=== PATIENT | female | born 2000 | race Caucasian/White ===

== ENCOUNTER 2018-02-02 06:54 | Inpatient (IN) ==
[~2018-02-02 06:54] MED LIST: *HR* Nalbuphine 10 MG/ML AMPUL IVP PRN; Famotidine 20 MG/2 ML VIAL IVP PRN; Metoclopramide 10 MG/2 ML VIAL IVP PRN; Naloxone 0.4 MG/ML INJ IVP PRN; Ondansetron 4 MG/2 ML VIAL IVP PRN
--- NOTE | 2018-02-02 06:54 | OB/GYN History & Physical ---
Date of Encounter: 02/02/18 Time of Encounter: 06:52 Assessment and Plan (1) 40 weeks gestation of Current visit: Yes Status: Acute (2) Spontaneous onset of labor Current visit: Yes Status: Acute Admit to labor and delivery Nubain and epidural as desired GBS negative Anticipate History of Present Illness HPI: Ms. Richmond is a 18 year old female 40+ weeks gestation presents to triage with complaints of contraction. Patient states earlier this morning she started to have regular consistent contractions now less than 5 minutes apart. Reports good movement, denies vaginal bleeding or leaking of fluid area care with midwives. Uncomplicated course. Labs: A+, rubella and varicella nonimmune, GBS negative, all other serologies negative Past Med Surg Social Fam HX - Past Medical History Source: patient Medical history: no medical history Psychiatric history: no psych history - Past Surgical History Surgical History: no surgical history - Social History Smoking Status: Never smoker Smokeless Tobacco Status: No Alcohol use: none Drug use: none - Family History Mother Family Member Ethnicity: Non- Living Status: Still Living Hx Family Cardiac Disorders: Yes (HTN) Obstetrical History - Pregnancies : 1 Para: 0 Term: 0 : 0 Ab's: 0 Livin Medications and Allergies Vit/Iron Fumarate/FA [ Tablet] 1 each PO DAILY #30 tablet 05/30 [Rx] 3 Allergy/AdvReac Type Severity Reaction Status Date / Time No Known Allergies Allergy Verified 02/02/18 06:13 Exam - Constitutional Constitutional: well developed, well nourished, no acute distress, average body habitus - Neck Neck exam: full ROM - Lungs Respiratory exam: CTAB - Cardiovascular Cardiovascular exam: RRR - Abdomen Abdomen: Present: gravid, non tender - Extremities Extremities exam: normal capillary refill, normal inspection - Cervix Dilation: 3 (per RN) Results All other labs normal. - VTE Reasons for not Prescribing Prophylaxis: Treatment not Indicated - Low risk for VTE
[2018-02-02] MEDS ORDERED: EPHEDrine 50 MG/ML VIAL IVP PRN (07:22)
--- NOTE | 2018-02-02 07:26 | Anesthesia Evaluation PreOp ---
Date of Encounter: 02/02/18 Time of Encounter: 07:27 - Past History Planned Operation: vaginal del, G1 spont 40wks. Cardiac History: Denies any Significant Hx Pulmonary History: Denies Any Significant HX STUDENT ACCOUNTS MANAGER History: Denies Any Significant HX Other Medical History: Denies Any Significant HX Anesthesia History: No Prior Anesthetic Complications, Past Anesthesia Alcohol Use: none Drug use: none Medications and Allergies Vit/Iron Fumarate/FA [ Tablet] 1 each PO DAILY #30 tablet 05/30 [Rx] 3 Allergy/AdvReac Type Severity Reaction Status Date / Time No Known Allergies Allergy Verified 02/02/18 06:13 Anesthesia Results - Labs 02/02/18 06:42 Anesthesia Exam - HEENT Pupil (Motor): Pupils equal Mallampati: II Teeth: Normal Oral Opening: Greater than 3 - STUDENT ACCOUNTS MANAGER LOC: Oriented STUDENT ACCOUNTS MANAGER Motor: Normal RUE, Normal LUE, Normal RLE, Normal LLE, Normal Face STUDENT ACCOUNTS MANAGER Sensory: Normal: RUE, LUE, RLE, LLE, Face - Cardiac Rhythm: Regular Murmur: None - Pulmonary Breath Sounds: bilateral Clear Respiratory Effort: Symmetrical Anesthesia Assess/Plan ASA Score: 2 Modified Onofre Scale for Level of Consciousness: Cooperative, oriented, and tranquil Anesthetic Plan: General, Regional Monitoring Plan: Standard Monitors Recovery Plan: PACU
[2018-02-02 07:27] LABS: Basophils % 0.3 %; Eosinophils # 0.1 K/mcL (0.0-0.6); Eosinophils % 0.5 %; Hematocrit 34.4 % (35.3-44.9); Immature Granulocytes % 0.5 % (0-4); Lymphocytes # 1.3 K/mcL (0.6-4.6); Lymphocytes % 11.7 %; Mean Corpuscular HGB Conc 34.9 g/dL (31.6-35.5); Mean Corpuscular Hemoglobin 32.3 pg (28.0-33.3); Mean Corpuscular Volume 92.7 fL (83.0-100.0); Mean Platelet Volume 10.4 fL (9.4-12.4); Monocytes # 0.7 K/mcL (0.0-1.3); Monocytes % 6.5 %; Platelet Count 193 K/mcL (140-400); Red Blood Count 3.71 M/mcL (3.82-4.97); Red Cell Distribution Width 13.2 % (11.5-14.5); Segmented Neutrophils % 80.5 %
[2018-02-02] MEDS ORDERED: Epidural Premix (fent/bupiv) 110 ML EP SCH (07:30)
[2018-02-02 07:42] LABS: Amphetamine Screen,Urine Negative ng/mL (Cutoff=1000); Barbiturate Screen,Urine Negative ng/mL (Cutoff=200); Benzodiazepines Screen,Urine Negative ng/mL (Cutoff=200); Cannabinoid Screen,Urine Negative ng/mL (Cutoff = 50); Cocaine Screen,Urine Negative ng/mL (Cutoff= 300); Opiate Screen,Urine Negative ng/mL (Cutoff=300); Phencyclidine Screen,Urine Negative ng/mL (Cutoff=25)
[2018-02-02] MEDS ORDERED: Lidocaine -MPF 2% 5 ML VIAL ONE (09:12)
[2018-02-02] MEDS: Ringers Solution, Lactated 1,000 ML IVC SCH ×3 (09:47→11:52)
[2018-02-02] MEDS ORDERED: Oxytocin 20 units/ LR 1000 mL 20 UNIT/1,000 ML BAG IVC SCH ×2 (10:15→23:25)
--- NOTE | 2018-02-02 10:22 | OB Labor Progress Note ---
Date of Encounter: 02/02/18 Time of Encounter: 10:17 Labor Progress Note - Subjective Subjective: Breathing through contractions. Requesting pain medication - Vital Signs Vital Signs: VSS - Cervix Cervix: 6/90/0 - Heart Tones Heart Tones: 140 baseline - [place]: Contractions every 2-4 minutes - Plan Plan: Continue routine labor management Anticipate vaginal delivery GBS negative Consider AROM after epidural placement POC per consult with Dr Erickson
--- NOTE | 2018-02-02 10:52 | Anesthesia Procedures ---
Date of Encounter: 02/02/18 Time of Encounter: 10:41 Procedures: Anesthesia - Epidural/Spinal Patient ID/Chart reviewed: Yes Patient examined: Yes OB Eval: Gestational age: 40 OB Eval: : 1 OB Eval: Contractions: Non-stressed pattern Consent Obtained: Yes Supplemental Oxygen: None/Room Air Site Prep: Aseptic Technique, Sterile prep and drape, 0.5% Chlorhexidine/Alcohol Patient position: right lateral decubitus Local Anesthetic: Lidocaine 1% Amount of Local Anesthetic used: 2 Touhy Needle Gauge: 18 Touhy Needle Depth (cm): 8 Catheter Depth at Skin (cm): 12 Test Dose (1.5% Lido + Epi): Volume given (mls): 3 Test Dose Result: Negative Loading Dose: Other: 10ml from solution Loading Dose Administered: Thru Catheter Infusion Med: 0.125% Bupivacaine w/ 2 mcg/ml Fentanyl Infusion Rate (mls/hr): [address]: Tegaderm, Tape Interspace Used: L3-L4 Loss of Resistance (KIAH): Yes (saline) Blood: No CSF: No Paresthesia: No Procedure: vss though out procedure, FHR stable per RN's
--- NOTE | 2018-02-02 11:50 | OB Labor Progress Note ---
Date of Encounter: 02/02/18 Time of Encounter: 11:48 Labor Progress Note - Subjective Subjective: Resting comfortably after epidural placed. - Vital Signs Vital Signs: VSS - Cervix Cervix: 7-8/90/0 - Heart Tones Heart Tones: 125 - Almedia Almedia: every 2-4 minutes - Interventions Interventions: AROM for moderate amount of light mec stained fluid; discussed with patient and FOB - Plan Plan: Continue routine labor management GBS negative Consider pitocin if not making cervical change Anticipate vaginal delivery POC per consult with Dr Erickson
[2018-02-02] MEDS ORDERED: Oxytocin 20 units/ LR 1000 mL 20 UNIT/1,000 ML BAG IVC ONE ×2 (17:28→23:25)
[2018-02-02] MEDS ORDERED: miSOPROStol 100 MCG TABLET PO STA ×3 (22:20→22:23)
--- NOTE | 2018-02-02 22:30 | OB/GYN Procedure Note ---
Delivery - Delivery Date: 02/02/18 Provider: Tami Pierce Intrapartum events: none Delivery induction: none Delivery augmentation: pitocin Delivery monitor: external FHT, external uterine Anesthesia: epidural Quantitated Blood Loss: 250 - (s) Infant A Infant Delivery Date: 02/02/18 Infant Delivery Time: 21:04 Presentation: vertex Position: LUCA Route of delivery: Gender: Female Viability: Viable Pounds: 7 Ounces: 12 Weight Gram: 3.525 kg at 1 minute: 9 at 5 mins: 9 Shoulder Dystocia: not encountered Placenta: spontaneous Cord: 3 umbilical vessels - Repair Episiotomy: none Laceration Description: Perineal - 2nd Degree, Labial (superficial hemostatic bilateral) - Complications Delivery complications: none Delivery comments: Patient progressed to complete and began coached pushing to of viable, vigorous female in the LUCA position. No nuchal, no shoulder dystocia. Light meconium stained fluid; nursery and respiratory present for delivery. placed on maternal abdomen, warmed, dried, and stimulated. Cord double clamped and cut with assistance of FOB after pulsations ceased. Apgars 9 and 9 at one and five minutes of age. Placenta delivered spontaneously and appears grossly intact with 3 vessel cord. Upon perineal inspection, superficial bilateral hemostatic labial lacerations were noted and left to heal by second intention. A second degree was present and repaired in the usual fashion. EBL 250. Fundus firm and at U/[address] Erickson notified. and mother stable in recovery. - Disposition Mom disposition: stable in LDR [place] disposition: stable in LDR
[2018-02-02] MEDS ORDERED: *HR* Labetalol 20 MG/4 ML SYRINGE IVP ONE (23:06)
[2018-02-02] MEDS ORDERED: Piperacillin/Tazobactam 3.375 GM in 0.9 % Sodium Chloride Mini Bag 100 ML IVPB STA (23:11)
[2018-02-02] MEDS ORDERED: Acetaminophen IV 1,000 MG/100 ML INFUS..BTL IVPB ONE (23:23)
[2018-02-02] MEDS ORDERED: Benzocaine/Menthol 56 GM AEROSOL SPRAY TP PRN (23:25)
[2018-02-02] MEDS ORDERED: Sennosides 8.6 MG TABLET PO PRN (23:25)
[2018-02-02] MEDS ORDERED: Acetaminophen 325 MG TABLET PO PRN (23:25)
[2018-02-02] MEDS ORDERED: Measles/Mumps/Rubella Vacc 0.5 ML VIAL SQ PRN (23:25)
[2018-02-03] MEDS: Prenatal Vit/FA 1 EACH TABLET PO SCH (09:19)
--- NOTE | 2018-02-03 09:28 | OB/GYN Progress Note ---
Date of Encounter: 02/03/18 Time of Encounter: 09:27 - Assessment and Plan (1) Vaginal delivery Current Visit: Yes Status: Acute Stable PPD #1 Continue current management anticipate discharge tomorrow. Subjective - Subjective Patient reports: appetite normal, voiding normally, pain well controlled, ambulating normally [place]: doing well Objective - Latest Vital Signs Latest vital signs: Vital Signs Temp Pulse Resp BP Pulse Ox 02/03/18 08:00 98.1 F 93 14 112/73 98 02/03/18 03:10 98.2 F 99 14 101/62 98 02/03/18 02:10 98.3 F 97 14 119/69 97 02/03/18 01:10 98.1 F 102 14 116/72 98 Intake and Output 02/02/18 02/03/18 02/03/18 23:59 07:59 15:59 Intake Total 900 / 900 Output Total 400 / 400 500 / 500 Balance -400 / -400 400 / 400 Intake: Oral 900 / 900 Output: Urine 400 / 400 500 / 500 Other: Weight 74.072 kg Patient Weight 02/03/18 23:59 Weight 74.072 kg - Exam Lungs: bilateral: normal Chest: Normal S1, Normal S2 Abdomen: Present: soft Uterus: Present: firm Uterus Position: At Umbilicus
[2018-02-03] MEDS: Ibuprofen 600 MG TABLET PO PRN (20:35)
--- NOTE | 2018-02-04 07:25 | Discharge Summary ---
Date of Encounter: 02/04/18 Time of Encounter: 07:23 - Discharge Diagnosis (1) Vaginal delivery Priority: Primary Status: Acute Comments: Pt meeting milestones. She is requesting discharge home. - Discharge Medications Prescriptions: Ibuprofen [Motrin] 600 mg PO Q6HR PRN #30 tablet PRN Reason: Cramping Docusate [Colace] 100 mg PO BID #60 capsule Home Medications: Vit/Iron Fumarate/FA [ Tablet] 1 each PO DAILY #30 tablet 05/30 [Rx] Benzocaine/Menthol [place] [Dermoplast [place]] 1 appl TP QID PRN aerosol 02/04/18 [Rx] Docusate [Colace] 100 mg PO BID #60 capsule 02/04/18 [Rx] Ibuprofen [Motrin] 600 mg PO Q6HR PRN #30 tablet 02/04/18 [Rx] Allergies/Adverse Reactions: 3 Allergy/AdvReac Type Severity Reaction Status Date / Time misoprostol [From Cytotec] AdvReac Hypertensio Verified 02/03/18 07:09 n Data Procedures and tests throughout hospitalization: Laboratory Tests 02/02/18 02/02/18 06:05 06:42 WBC 11.2 H RBC 3.71 L Hgb 12.0 Hct 34.4 L MCV 92.7 MCH 32.3 MCHC 34.9 RDW 13.2 Plt Count 193 MPV 10.4 Immature Gran % 0.5 Seg Neutrophils % 80.5 Lymphocytes % 11.7 Monocytes % 6.5 Eosinophils % 0.5 Basophils % 0.3 Neutrophils # 9.0 H Lymphocytes # 1.3 Monocytes # 0.7 Eosinophils # 0.1 Basophils # 0.0 Urine Opiates Screen Negative Ur Barbiturates Screen Negative Ur Phencyclidine Scrn Negative Ur Amphetamines Screen Negative U Benzodiazepines Scrn Negative Urine Cocaine Screen Negative U Marijuana (THC) Screen Negative Ur Drug Screen Interp See Below Date of admission: 02/02/18 06:55 Primary care physician: Diomedes Miller MD Consults: 02/02/18 23:25 Consult to Plastics Fabricator [CONS] Routine Comment: Vaginal delivery, consult needed Discharging clinician: Rosemary Barrios Anticipated date of discharge: 02/04/18 - Patient Status Disposition: Home, Self-Care Condition: Good Functional capacity at discharge: independent ambulation Overall status at discharge: patient is progressing back to baseline - Discharge Instructions Follow Up With: Diomedes Miller MD [Primary Care Provider] - Tami Pierce CNM [Advanced Practice Nurse] - - Diet and Activity Activity: increase activity as tolerated Diet: regular diet Hospital Course Reason for admission: active labor Delivery: Episiotomy: none Laceration: 2nd degree Other procedures: none complications: none Discharge diagnosis: IUP at term delivered baby: female Hospital course: - Delivery Date: 02/02/18 Provider: Tami Pierce Intrapartum events: none Delivery induction: none Delivery augmentation: pitocin Delivery monitor: external FHT, external uterine Anesthesia: epidural Quantitated Blood Loss: 250 - (s) Infant A Infant Delivery Date: 02/02/18 Delivery Time: 21:04 Presentation: vertex Position: LUCA Route of delivery: Gender: Female Viability: Viable Pounds: 7 Ounces: 12 Weight Gram: 3.525 kg at 1 minute: 9 at 5 mins: 9 Shoulder Dystocia: not encountered Placenta: spontaneous Cord: 3 umbilical vessels - Repair Episiotomy: none Laceration Description: Perineal - 2nd Degree, Labial (superficial hemostatic bilateral) - Complications Delivery complications: none - Disposition Mom disposition: home PPD#2 disposition: home with mother, bottle feeding Time Attestation: Total time spent providing and/or coordinating discharge services: Time Spent: Less than 30 minutes Exam - Constitutional Vitals: Temp Pulse Resp BP Pulse Ox 97.8 F 96 15 120/76 98 02/03/18 19:40 02/03/18 19:40 02/03/18 19:40 02/03/18 19:40 02/03/18 19:40 General appearance IM: A&O X 3 - Respiratory Respiratory exam: Present: CTAB - Cardiovascular Cardiovascular exam IM: Present: RRR, +S1, +S2 - GI/Abdominal GI/Abdominal exam IM: soft - Uterine Tone: Firm Uterus Position: 1 Finger Below Umbilicus - Extremities Exam Extremities exam IM: Present: normal inspection - Neurological Exam Neurological exam: normal gait, oriented X3 - Psychiatric Additional comments: reports good mood
[2018-02-04] MEDS: Ibuprofen 600 MG TABLET PO PRN (07:41)
[2018-02-04] MEDS: Prenatal Vit/FA 1 EACH TABLET PO SCH (07:41)
[2018-02-04 08:04] VITALS: BP 133/87
== END 2018-02-04 10:10 | disposition home or self-care (01) | DRG 560 ==
LOC: 1NENULAB → 1NENUOBS 02-03 01:21
PROVIDERS: ADMIT Advanced Practice Midwife; ATTEND Advanced Practice Midwife

== ENCOUNTER → 2021-03-28 09:18 | Observation (INO) | END | disposition home or self-care (01) | LOC: 1NENULAB | PROVIDERS: ADMIT Advanced Practice Midwife; ATTEND Advanced Practice Midwife ==

== ENCOUNTER 2021-03-28 13:49 | Inpatient (IN) ==
[~2021-03-28 13:49] MED LIST changes: +*HR* Nalbuphine 10 MG/ML AMPUL IV PRN; -*HR* Nalbuphine 10 MG/ML AMPUL IVP PRN; +Azithromycin 500 MG in 0.9 % Sodium Chloride 250 ML IVPB PRN; +Lidocaine 1% 20 ML MDV INFILT PRN; +Ringers Solution, Lactated 1,000 ML IVC SCH
[2021-03-28 15:07] LABS: Basophils % 0.1 %; Eosinophils # 0.1 K/mcL (0.0-0.6); Eosinophils % 0.3 %; Hematocrit 33.4 % (35.3-44.9); Hemoglobin 11.6 g/dL (11.5-15.4); Immature Granulocytes % 0.5 % (0-4); Lymphocytes # 1.1 K/mcL (0.6-4.6); Lymphocytes % 7.7 %; Mean Corpuscular HGB Conc 34.7 g/dL (31.6-35.5); Mean Corpuscular Hemoglobin 33.3 pg (28.0-33.3); Mean Platelet Volume 10.4 fL (9.4-12.4); Monocytes # 0.8 K/mcL (0.0-1.3); Monocytes % 5.2 %; Neutrophils # 12.7 K/mcL (1.6-8.9); Platelet Count 220 K/mcL (140-400); Red Blood Count 3.48 M/mcL (3.82-4.97); Red Cell Distribution Width 13.8 % (11.5-14.5); Segmented Neutrophils % 86.2 %; White Blood Count 14.8 K/mcL (4.3-11.1)
[2021-03-28] MEDS ORDERED: *HR* FentaNYL (PF) 100 MCG/2 ML VIAL ONE (15:34)
[2021-03-28] MEDS ORDERED: Ropivacaine/PF 0.2% 20 ML VIAL ONE (15:34)
[2021-03-28] MEDS ORDERED: Epidural Premix (fent/bupiv) 110 ML EP ONE (15:36)
[2021-03-28 15:40] LABS: Influenza A PCR Negative (Negative); Influenza B PCR Negative (Negative); Resp. Syncytial Virus PCR Negative (Negative)
[2021-03-28 16:04] LABS: SARS-CoV-2 by PCR (In House) Positive (Negative)
[2021-03-28] MEDS ORDERED: *HR* Ropivacaine/PF 0.5% 20 ML VIAL ONE (16:16)
[2021-03-28] MEDS ORDERED: Oxytocin 20 units/ LR 1000 mL 20 UNIT/1,000 ML BAG IVC ONE (16:20)
[2021-03-28] MEDS ORDERED: Oxytocin 20 units/ LR 1000 mL 20 UNIT/1,000 ML BAG IVC SCH (18:37)
[2021-03-28] MEDS ORDERED: Lanolin 7 G OINT...G. TP PRN (18:37)
[2021-03-28] MEDS ORDERED: Ondansetron ODT 4 MG TAB.RAPDIS SL PRN (18:37)
[2021-03-28] MEDS ORDERED: Benzocaine/Menthol 56 GM AEROSOL SPRAY TP PRN (18:37)
[2021-03-28] MEDS: Acetaminophen 325 MG TABLET PO SCH (20:05)
[2021-03-28] MEDS: Ibuprofen 600 MG TABLET PO SCH (20:05)
[2021-03-29 06:31] LABS: Basophils % 0.2 %; Eosinophils # 0.1 K/mcL (0.0-0.6); Eosinophils % 0.8 %; Hematocrit 28.2 % (35.3-44.9); Immature Granulocytes % 0.7 % (0-4); Lymphocytes # 1.8 K/mcL (0.6-4.6); Lymphocytes % 13.4 %; Mean Corpuscular HGB Conc 35.5 g/dL (31.6-35.5); Mean Corpuscular Hemoglobin 33.2 pg (28.0-33.3); Mean Corpuscular Volume 93.7 fL (83.0-100.0); Mean Platelet Volume 10.3 fL (9.4-12.4); Monocytes % 7.7 %; Neutrophils # 10.2 K/mcL (1.6-8.9); Platelet Count 194 K/mcL (140-400); Red Blood Count 3.01 M/mcL (3.82-4.97); Red Cell Distribution Width 13.7 % (11.5-14.5); Segmented Neutrophils % 77.2 %; White Blood Count 13.2 K/mcL (4.3-11.1)
[2021-03-29] MEDS: Acetaminophen 325 MG TABLET PO SCH (08:31)
[2021-03-29] MEDS: Ibuprofen 600 MG TABLET PO SCH (08:31)
[2021-03-29 08:37] VITALS: BP 114/74; PULSE 83; TEMP 97.3; O2SAT 98
[2021-03-29] MEDS ORDERED: Prenatal Vit/FA 1 EACH TABLET PO SCH (09:00)
== END 2021-03-29 19:22 | disposition home or self-care (01) | DRG 560 ==
LOC: 1NENULAB → 1NENUOBS 19:39
PROVIDERS: ADMIT Advanced Practice Midwife; ATTEND Advanced Practice Midwife